=== PATIENT | female | born 1990 | race African-American/Black ===

== ENCOUNTER 2025-04-26 07:35 | Emergency (ER) | payer MEDICAID ==
[~2025-04-26] VITALS: Ht 172.7 cm; Wt 73.0 kg
[2025-04-26 07:39] VITALS: O2SAT 98
[2025-04-26] MEDS: SUCRALFATE 1G TABLET PO SCH (08:11)
[2025-04-26] MEDS: MAGNESIUM/ALUMINUM HYDROXIDE/SIMETHICONE 30ML UDC PO ONE (08:11)
[2025-04-26] MEDS: FAMOTIDINE 20MG TABLET PO ONE (08:12)
[2025-04-26 08:27] LABS: BASOPHILS % 0.9 % (0.0-2.0); EOSINOPHILS % 2.6 % (0.0-5.0); HEMATOCRIT. 32.2 % (36.0-48.0); HEMOGLOBIN. 10.4 g/dL (12.0-16.0); LYMPHOCYTES % 23.7 % (20.0-50.0); MEAN CORPUSCULAR HEMOGLOBIN 27.5 pg (28.0-32.0); MEAN CORPUSCULAR HGB CONC 32.5 g/dL (31.0-37.0); MEAN CORPUSCULAR VOLUME 84.6 fL (81.0-99.0); MEAN PLATELET VOLUME 8.4 fl (7.4-10.4); MONOCYTES % 7.1 % (2.0-8.0); NEUTROPHILS % 65.7 % (40.0-76.0); PLATELET 266 x1000/uL (130-400); RED CELL DISTRIBUTION WIDTH 16.6 % (11.6-14.6); WHITE BLOOD COUNT 6.6 x1000/uL (4.5-11.0)
[2025-04-26 08:39] LABS: CHLORIDE 109 mEq/L (98-107); POTASSIUM 3.7 mEq/L (3.5-5.1); SODIUM 139 mEq/L (136-145)
[2025-04-26 08:40] LABS: CALCIUM 8.8 mg/dL (8.7-10.4); CARBON DIOXIDE 22 mEq/L (21-32)
[2025-04-26 08:42] LABS: HCG SCREEN NEGATIVE
[2025-04-26 08:45] LABS: CREATININE 0.8 mg/dL (0.6-1.0); GLUCOSE 100 mg/dL (70-105); UREA NITROGEN BLOOD 9 mg/dL (9-23)
[2025-04-26 08:47] LABS: ALANINE AMINOTRANSFERASE 13 IU/L (10-49); ASPARTATE AMINOTRANSFERASE 20 IU/L (<34); BILIRUBIN DIRECT < 0.1 mg/dL (<=3.0); BILIRUBIN TOTAL 0.3 mg/dL (0.1-1.0); PROTEIN TOTAL 6.8 g/dL (6.0-8.3)
[2025-04-26] MEDS: ONDANSETRON HCL 4MG/2ML INJ IV ONE (08:54)
[2025-04-26] MEDS ORDERED: FAMO-134 MT (10:16)
[2025-04-26] MEDS ORDERED: ONDA-239 PO (10:16)
[2025-04-26 10:29] VITALS: BP 134/85; PULSE 70; RESP 12; TEMP 37; O2SAT 100
== END 2025-04-26 10:40 | disposition home or self-care (01) ==
LOC: ER 07:35
DX: R10.9 Unspecified abdominal pain (principal); R11.2 Nausea with vomiting, unspecified; Z87.19 Personal history of other diseases of the digestive system
CPT/HCPCS: 80076; 80048; 81025; 84703; 83690; 85025; 36415; 74176; 96374; 99285; J2405; Z7610